=== PATIENT | female | born 1985 | race Caucasian/White ===

== ENCOUNTER 2017-11-10 02:55 | Inpatient (IN) | payer OTHER ==
[~2017-11-10] VITALS: Ht 157.5 cm; Wt 68.0 kg
[2017-11-10 03:24] LABS: MICROSCOPIC INDICATED
[2017-11-10] MEDS ORDERED: FENTANYL PF 100 MCG/2ML IV PRN (04:30)
[2017-11-10] MEDS ORDERED: OXYTOCIN 30U/ 0.9% NaCL 500ML 500 ML IV ONE (04:30)
[2017-11-10] MEDS ORDERED: CALCIUM CARBONATE 500 MG TAB.CHEW PO PRN ×2 (04:30→22:30)
[2017-11-10] MEDS ORDERED: FENTANYL PF 100 MCG/2ML IVPush PRN (04:30)
[2017-11-10] MEDS ORDERED: TERBUTALINE 1 MG/ML, 1ML IVPush PRN (04:30)
[2017-11-10] MEDS ORDERED: ONDANSETRON 2MG/ML, 2ML IVPush PRN (04:30)
[2017-11-10] MEDS: LACTATED RINGERS 1,000 ML IV SCH ×5 (04:30→18:29)
[2017-11-10] MEDS ORDERED: D5%-LACTATED RINGERS 1,000 ML IV SCH (04:30)
[2017-11-10] MEDS ORDERED: NEWBORN KIT ONE (04:35)
[2017-11-10] MEDS ORDERED: OXYTOCIN 30U/ 0.9% NaCL 500ML 500 ML ONE (04:35)
[2017-11-10] MEDS ORDERED: FENTANYL/BUPIV./NS/PF 250 ML EPIDCONT SCH (04:52)
[2017-11-10 04:59] LABS: BASOPHILS # (AUTO) 0.06 x10^3/uL (0-0.1); BASOPHILS % (AUTO) 1 % (0-1); EOSINOPHILS # (AUTO) 0.07 x10^3/uL (0-0.4); EOSINOPHILS % (AUTO) 1 % (1-7); LYMPHOCYTES # (AUTO) 1.39 x10^3/uL (1-3.4); LYMPHOCYTES % (AUTO) 17 % (22-44); MD NO; MEAN CORPUSCULAR HEMOGLOBIN 28.9 pg (27.0-34.8); MEAN CORPUSCULAR HGB CONC 33.1 g/dL (32.4-35.8); MEAN CORPUSCULAR VOLUME 87.3 fL (80-100); MEAN PLATELET VOLUME 8.2 fL (7.4-10.4); MONOCYTES # (AUTO) 0.58 x10^3/uL (0.2-0.8); MONOCYTES % (AUTO) 7 % (2-9); NEUTROPHILS # (AUTO) 6.05 x10^3/uL (1.8-6.8); NEUTROPHILS % (AUTO) 74 % (42-75); PLATELET COUNT 240 x10^3/uL (130-400); RED BLOOD COUNT 3.99 x10^6/uL (3.82-5.3); RED CELL DISTRIBUTION WIDTH 14.3 % (9.6-15.2)
[2017-11-10] MEDS ORDERED: BUPIVACAINE 0.25% ONE ×2 (05:34→06:26)
[2017-11-10] MEDS ORDERED: LIDOCAINE/PF 1.5%-EPI 1:200K, 30ML ONE (05:40)
[2017-11-10] MEDS ORDERED: OXYTOCIN 30U/ 0.9% NaCL 500ML 500 ML IV PRN (07:18)
[2017-11-10] MEDS ORDERED: TERBUTALINE 1 MG/ML, 1ML ONE (10:25)
[2017-11-10] MEDS ORDERED: LACTATED RINGERS 1,000 ML INTUTE SCH (11:00)
[2017-11-10] MEDS ORDERED: LACTATED RINGERS 1,000 ML INTUTE PRN (11:00)
[2017-11-10] MEDS ORDERED: FENTANYL PF 500 MCG, BUPIVACAINE/PF 0.5%, 30ML 62.5 ML in SODIUM CHLORIDE 0.9% 177.5 ML EPIDCONT SCH (19:30)
[2017-11-10] MEDS ORDERED: SODIUM CITRATE/CITRIC ACID 30 ML UDC ONE (21:45)
[2017-11-10] MEDS ORDERED: METOCLOPRAMIDE 5 MG/ML, 2ML ONE (21:46)
[2017-11-10] MEDS ORDERED: ONDANSETRON 2MG/ML, 2ML IV PRN (22:30)
[2017-11-10] MEDS ORDERED: DIPH,PERTUSS(ACELL),TET VAC/PF NC IM-VACC PRN (22:30)
[2017-11-10] MEDS ORDERED: OXYcodone/APAP 5/325MG TABLET PO PRN (22:30)
[2017-11-10] MEDS ORDERED: DOCUSATE 100 MG CAPSULE PO PRN (22:30)
[2017-11-10] MEDS ORDERED: MISOPROSTOL 200 MCG TABLET PR PRN (22:30)
[2017-11-10] MEDS ORDERED: MEASLES,MUMPS&RUBELLA VACC/PF 0.5 ML SQ PRN (22:30)
[2017-11-10] MEDS ORDERED: OXYcodone IR 5MG TABLET PO PRN (22:30)
[2017-11-10] MEDS ORDERED: RHOGAM FROM BLOOD BANK 1 NOTE EA IM/IV ONE (22:30)
[2017-11-10] MEDS ORDERED: MAGNESIUM HYDROXIDE 8%, 30ML UDC PO PRN (22:30)
[2017-11-10] MEDS ORDERED: IBUPROFEN 600 MG TABLET ONE (23:08)
[2017-11-10] MEDS: IBUPROFEN 600 MG TABLET PO PRN (23:40)
[2017-11-11 01:18] VITALS: BP 107/70
[2017-11-11] MEDS: LACTATED RINGERS 1,000 ML IV SCH (01:38)
[2017-11-11] MEDS: OXYTOCIN 30U/ 0.9% NaCL 500ML 500 ML IV SCH ×3 (01:52→18:28)
[2017-11-11 03:50] VITALS: BP 109/70
[2017-11-11] MEDS: IBUPROFEN 600 MG TABLET PO PRN ×3 (06:20→22:18)
[2017-11-11 06:24] LABS: BASOPHILS # (AUTO) 0.02 x10^3/uL (0-0.1); BASOPHILS % (AUTO) 0 % (0-1); EOSINOPHILS # (AUTO) 0.01 x10^3/uL (0-0.4); EOSINOPHILS % (AUTO) 0 % (1-7); LYMPHOCYTES # (AUTO) 0.86 x10^3/uL (1-3.4); LYMPHOCYTES % (AUTO) 6 % (22-44); MD NO; MEAN CORPUSCULAR HEMOGLOBIN 29.1 pg (27.0-34.8); MEAN CORPUSCULAR HGB CONC 33.6 g/dL (32.4-35.8); MEAN CORPUSCULAR VOLUME 86.4 fL (80-100); MEAN PLATELET VOLUME 8.8 fL (7.4-10.4); MONOCYTES # (AUTO) 0.51 x10^3/uL (0.2-0.8); MONOCYTES % (AUTO) 4 % (2-9); NEUTROPHILS # (AUTO) 12.13 x10^3/uL (1.8-6.8); NEUTROPHILS % (AUTO) 90 % (42-75); PLATELET COUNT 212 x10^3/uL (130-400); RED BLOOD COUNT 3.95 x10^6/uL (3.82-5.3); RED CELL DISTRIBUTION WIDTH 14.5 % (9.6-15.2)
[2017-11-11 07:30] VITALS: BP 112/74
[2017-11-11] MEDS ORDERED: PRENATAL VIT/IRON/FA 1 EACH TABLET PO SCH (09:00)
[2017-11-11] MEDS ORDERED: OXYcodone 5 MG/5 ML ORAL.SOL UDC PO PRN (10:30)
[2017-11-11 16:07] VITALS: BP 110/71
[2017-11-11 20:30] VITALS: BP 112/68
[2017-11-12] MEDS: OXYTOCIN 30U/ 0.9% NaCL 500ML 500 ML IV SCH (04:28)
[2017-11-12] MEDS: LACTATED RINGERS 1,000 ML IV SCH (04:30)
[2017-11-12] MEDS: IBUPROFEN 600 MG TABLET PO PRN (07:06)
[2017-11-12 08:00] VITALS: BP 112/71
[2017-11-12] MEDS ORDERED: IBUP-1222 PO (11:08)
== END 2017-11-12 12:40 | disposition home or self-care (01) | DRG 775 ==
LOC: LDOP 02:55 → LDIP 04:36 → 2NW 11-11 01:00
PROVIDERS: ADMIT Student in an Organized Health Care Education/Training Program; ATTEND Student in an Organized Health Care Education/Training Program
PROC: 0KQM0ZZ Repair Perineum Muscle, Open Approach (ICD-10-PCS; principal; 2017-11-10)
PROC: 10E0XZZ Delivery of Products of Conception, External Approach (ICD-10-PCS; 2017-11-10)
PROC: 3E0R3BZ Introduction of Anesthetic Agent into Spinal Canal, Percutaneous Approach (ICD-10-PCS; 2017-11-10)
PROC: 00HU33Z Insertion of Infusion Device into Spinal Canal, Percutaneous Approach (ICD-10-PCS; 2017-11-10)
DX: O77.0 Labor and delivery complicated by meconium in amniotic fluid (principal); O70.1 Second degree perineal laceration during delivery; O69.81X0 Labor and delivery complicated by cord around neck, without compression, not applicable or unspecified; Z3A.39 39 weeks gestation of pregnancy; Z37.0 Single live birth
CPT/HCPCS: 36415; 99285; J7121; 81001; 82803; 85025; 86850; 86900; 87086; J3010; J3490; J2590; J7050; J7120

== ENCOUNTER 2018-01-07 05:41 | Day surgery (SDC) | payer OTHER ==
[~2018-01-07] VITALS: Ht 160 cm; Wt 55.9 kg
[~2018-01-07 05:41] MED LIST: ASPI1TAB31 PO; IBUP-1222 PO; NONE PER PT
[2018-01-07] MEDS ORDERED: LACTATED RINGERS 1,000 ML IV SCH (06:04)
[2018-01-07 06:20] VITALS: BP 109/73
[2018-01-07] MEDS ORDERED: BUPIVACAINE/PF 0.5% ONE (07:02)
[2018-01-07] MEDS ORDERED: MIDAZOLAM 1 MG/ML, 2ML ONE (07:13)
[2018-01-07] MEDS ORDERED: SUCCINYLCHOLINE 20 MG/ML, 10ML ONE (07:13)
[2018-01-07] MEDS ORDERED: FENTANYL PF 100 MCG/2ML ONE ×2 (07:13→08:15)
[2018-01-07] MEDS ORDERED: DEXAMETHASONE 4 MG/ML, 1ML ONE ×2 (07:13)
[2018-01-07] MEDS ORDERED: LIDOCAINE-MPF 2% ,5ML ONE (07:13)
[2018-01-07] MEDS ORDERED: OXYcodone 5 MG/5 ML ORAL.SOL UDC PO PRN (07:30)
[2018-01-07] MEDS ORDERED: ALBUTEROL SULFATE 2.5 MG/3 ML NPPB PRN (07:30)
[2018-01-07] MEDS ORDERED: MIDAZOLAM 1 MG/ML, 2ML IV PRN (07:30)
[2018-01-07] MEDS ORDERED: ACETAMINOPHEN 500 MG TABLET PO ONE (07:30)
[2018-01-07] MEDS ORDERED: LORazepam 2 MG/ML, 1ML IVPush PRN (07:30)
[2018-01-07] MEDS ORDERED: MORPHINE SULFATE 4 MG/ML, 1ML IVPush PRN (07:30)
[2018-01-07] MEDS ORDERED: ONDANSETRON ODT 8 MG PO ONE (07:30)
[2018-01-07] MEDS ORDERED: HYDROmorphone 1 MG/ML, 1ML IV PRN (07:30)
[2018-01-07] MEDS ORDERED: hydrALAzine 20 MG/ML, 1ML IV PRN (07:30)
[2018-01-07] MEDS ORDERED: MEPERIDINE/PF 25MG/0.5ML IVPush PRN (07:30)
[2018-01-07] MEDS ORDERED: FENTANYL PF 100 MCG/2ML IV PRN (07:30)
[2018-01-07] MEDS ORDERED: LABETALOL 5MG/ML, 20ML IV PRN (07:30)
[2018-01-07] MEDS ORDERED: KETOROLAC 30 MG/1 ML ONE (07:32)
[2018-01-07] MEDS ORDERED: PROPOFOL 10 MG/ML, 20ML ONE (07:32)
[2018-01-07] MEDS ORDERED: OXYcodone 5 MG/5 ML ORAL.SOL UDC ONE (08:51)
== END 2018-01-07 12:05 | disposition home or self-care (01) ==
LOC: OUT 05:41
PROVIDERS: ATTEND Student in an Organized Health Care Education/Training Program
DX: Z30.2 Encounter for sterilization (principal); Z96.659 Presence of unspecified artificial knee joint
CPT/HCPCS: 58670; 81025; 88302; J0330; J1100; J1885; J2250; J2704; J3010; J3490; J7120; Q0162